=== PATIENT | female | born 1990 | race Caucasian/White ===

== ENCOUNTER 2020-01-07 22:49 | Emergency (ER) | payer OTHER, SELFPAY ==
[2020-01-07 22:56] VITALS: BP 105/71; PULSE 91; RESP 20; TEMP 37
--- NOTE | 2020-01-07 22:59 | ED.FALL ---
HPI - Fall General Chief Complaint: Fall Stated Complaint: pain in right ankle Time Seen by Provider: 01/07/20 22:50 Source: patient Mode of arrival: Wheelchair Limitations: no limitations History of Present Illness HPI Narrative: 29-year-old female non smoker with noncontributory medical history presents with her significant other and a chief complaint of severe right ankle pain after an injury about 30 minutes prior to arrival. She was stepping off some stairs and stepped awkwardly and rolled her ankle and now has significant pain in her ankle and lateral knee. She denies any head, neck or back pain. She denies any history of the same. She denies any numbness, tingling or weakness. She is otherwise well and free of complaint. It is worse when she moves and improves with rest Review of Systems Constitutional Constitutional: Denies chills, Denies fatigue, Denies fever(s), Denies frequent falls, Denies lethargy and Denies weakness Eyes Eyes: Denies change in vision, Denies eye discharge, Denies irritation and Denies loss of vision ENT Ears, Nose, Mouth, and Throat: Denies change in voice, Denies dizziness, Denies neck pain, Denies sore throat and Denies throat swelling Cardiovascular Cardiovascular: Denies chest pain, Denies irregular heart rhythm, Denies lightheadedness, Denies palpitations, Denies dyspnea, Denies dyspnea on exertion and Denies orthopnea Respiratory Respiratory: Denies cough, Denies dyspnea, Denies dyspnea on exertion and Denies wheezing Gastrointestinal Gastrointestinal: Denies abdominal pain, Denies change in bowel habits, Denies diarrhea, Denies nausea and Denies vomiting Musculoskeletal Musculoskeletal: Reports abnormal gait, Reports arthralgias, Reports joint swelling, Denies neck pain and Denies numbness Integumentary/Breasts Skin/Breast: Denies pruritus, Denies erythema, Denies rash and Denies wounds Neurologic Neurologic: Reports abnormal gait, Denies behavioral changes, Denies confusion, Denies dizziness, Denies frequent falls, Denies loss of vision, Denies numbness and Denies weakness Psychiatric Psychiatric: Denies anxiety, Denies behavioral changes, Denies confusion, Denies depression, Denies homicidal ideation and Denies suicidal ideation Endocrine Endocrine: Denies fatigue, Denies flushing and Denies palpitations Hematologic/Lymphatic Hematologic/Lymphatic: Denies easy bruising Allergic/Immunologic Allergic/Immunologic: Denies urticaria, Denies throat swelling and Denies wheezing Patient History Smoking Status: Never smoker alcohol intake frequency: 0-2 drinks per day Substance Use Type: does not use Exam Narrative Exam Narrative: GEN: AOx3 and in mild distress EYES: Pupils are equal, round, and reactive to light and accommodation. Extraoccular muscles are intact bilaterally. There is no subconjunctival hemorrhage or exudate. CHEST: Lungs are clear to auscultation bilaterally and free of wheezes, rales, or rhonchi. Heart rate is regular rhythm, there are no murmurs, clicks, rubs, or gallops. There is no chest wall tenderness. ABD: Abdomen is soft and nontender. There is no guarding or rebound. Bowel sounds are normal in all 4 quadrants. There is no mass or organomegaly. EXT: Tender pain with mild swelling over lateral malleolus. No ligamentous laxity. No pain over talar dome. Minor pain with palpation of proximal fibula of right side. No obvious deformity. Closed and neurovascularly intact. Full painless ROM of all extremities with no loss of sensation or strength. SKIN: Warm, pink, and dry. No erythema or rash Initial Vital Signs Initial Vital Signs: Vital Signs Temperature 98.6 F 01/07/20 22:56 Pulse Rate 91 H 01/07/20 22:56 Respiratory Rate 20 01/07/20 22:56 Blood Pressure 105/71 01/07/20 22:56 Procedures Orthopedic Splinting/Casting Injury #1: Side: right Lower Extremity Injury Location: ankle Lower Extremity Immobilizer: boot orthosis Other Orthopedic Equipment: crutches Post splinting neuro exam: intact Post splinting vascular exam: intact Placed by: Nursing Course Orders Ordered: ED Orders 01/07/20 23:07 XR ankle RT min 3V Stat XR tibia fibula RT 2V Stat Discontinued Medications Hydrocodone Bitart/Acetaminophen (Vicodin 5/325 Prepack) 1 bottle MISC SEEINSTR ONE Stop: 01/07/20 23:27 Last Admin: 01/08/20 00:03 Dose: 1 bottle Documented by: KIRSTEN Vital Signs Vital signs: Vital Signs - 8 hr 01/07/20 22:56 Temperature 98.6 F Pulse Rate 91 H Respiratory Rate 20 Blood Pressure 105/71 MDM - Fall Imaging Data Extremity x-ray #1: Attestation: I personally reviewed and interpreted this imaging study as follows: My Impression: NAP Discharge Plan Departure Patient Disposition: Home Clinical Impression: Acute right ankle pain Discharge Date/Time: 01/08/20 00:11 Instructions: DI for Ankle Sprain Activity Restrictions/Additional Instructions: *You have been diagnosed with [right ankle injury, no obvious fracture or dislocation on x-ray. Given the amount of pain your having we will treat conservatively with immobilizing boot and crutches.] *What to do: *Take medications as directed: Tylenol or Motrin for pain *Follow up with your primary care provider in 2-3 days, call for an appointment. Let them know you were seen in the Emergency Department and that we ask that you be seen in follow up *Return to ER if you should have any new, worsening or concerning symptoms Radiographic study has been interpreted by an emergency physician. The official diagnosis by radiology will be performed within the next 24 hours and should there be any change in outcome we will notify you of how to proceed. Referrals: [facility] [Outside]
--- NOTE | 2020-01-07 23:07 | DI.RAD.S_ITS ---
PROCEDURE: XR TIBIA FUBULA RT 2V INDICATIONS: severe right ankle and fibular pain TECHNIQUE: 2 views of the tibia and fibula were acquired. COMPARISON: [facility], CR, XR ANKLE RT MIN 3V, 01/07/2020, 23:05. FINDINGS: Bones: No fractures or dislocations. No suspicious bony lesions. Soft tissues: No suspicious soft tissue calcifications or masses. IMPRESSION: Normal plain film study. Note: No significant discrepancy from the preliminary report. Dictated by: Stephen Neri M.D. on 01/08/2020 at 7:37 Approved by: Stephen Neri M.D. on 01/08/2020 at 7:37
--- NOTE | 2020-01-07 23:07 | DI.RAD.S_ITS ---
PROCEDURE: XR ANKLE RT MIN 3V INDICATIONS: fall with severe pain TECHNIQUE: 3 views of the ankle were acquired. COMPARISON: [facility], CR, XR TIBIA FIBULA RT 2V, 01/07/2020, 23:14. FINDINGS: Bones: No fractures or dislocations. Ankle mortise is normally aligned. No suspicious bony lesions. The talar dome demonstrates no hans abnormality. A plantar calcaneal spur is seen. Soft tissues: No tibiotalar joint effusion. Achilles tendon appears normal. IMPRESSION: Negative plain films. Note: No significant discrepancy from the preliminary report. Dictated by: Stephen Neri M.D. on 01/08/2020 at 7:36 Approved by: Stephen Neri M.D. on 01/08/2020 at 7:37
[2020-01-08] MEDS: HYDROCODONE/ACET 5/325 PREPACK 1 BOTTLE MISC (00:03)
[2020-01-08 00:09] VITALS: BP 118/68; PULSE 65; RESP 18; O2SAT 98
== END 2020-01-08 00:11 | disposition home or self-care (01) ==
PROVIDERS: Emergency Provider Emergency Medicine
DX: M25.571 Pain in right ankle and joints of right foot (principal); W19.XXXA Unspecified fall, initial encounter
CPT/HCPCS: 73590; 73610; 99283